=== PATIENT | female | born 1990 | race African-American/Black ===

== ENCOUNTER 2019-03-25 10:20 | Outpatient (CLI) | payer OTHER, SELFPAY ==
--- NOTE | ~2019-03-25 | XR_ITS ---
EXAMINATION: XR chest 2V EXAM DATE: 03/25/2019 10:41 INDICATION: Cough. TECHNIQUE: Frontal and lateral projections of the chest obtained and reviewed. Comparison is made to prior examination from 02/12/2019. FINDINGS: There is moderate right-sided pleural effusion with adjacent airspace disease at least par tly atelectasis. Infection, could be atypical or chronic process, also possible. Effusion and airspac e disease appears mildly improved compared to 02/[address] scan in January there was also sig nificant mediastinal lymphadenopathy. Patient did have a thoracentesis, correlate with those results. Cardiomediastinal silhouette is normal. Left lung is clear. No left pleural effusion. There are no os seous abnormalities identified. IMPRESSION: Persistent moderate-sized right pleural effusion with adjacent airspace disease. Correlat e with prior CT, thoracentesis results. Reviewed, dictated and finalized at location A. PROGRAM COORDINATOR IMPRESSION: Persistent moderate-sized right pleural effusion with adjacent airs pace disease. Correlate with prior CT, thoracentesis results.
== END 2019-03-25 10:21 | disposition home or self-care (01) ==
LOC: ANHIMG 10:24
PROVIDERS: PCP Family Medicine; Visit Provider Physician Assistant
DX: R05 Cough (principal); R06.02 Shortness of breath; J90 Pleural effusion, not elsewhere classified
CPT/HCPCS: 71046

== ENCOUNTER 2019-03-26 11:07 | Outpatient (CLI) | payer OTHER, SELFPAY ==
--- NOTE | ~2019-03-26 | US_ITS ---
US thoracentesis DATE: 03/26/2019 13:54 INDICATION: Right pleural effusion TECHNIQUE: The purpose the procedure, technique and potential competitions were discussed with the araceli polanco. The patient verbalized understanding and gave consent. Timeout procedure confirmed proper patient and procedure. With ultrasound guidance, an appropriate site for percutaneous access for thoracentesis was identifie d. The skin was prepared with sterile Betadine solution. Sterile drape was applied. Local anesthetic was administered to the skin and underlying subcutaneous tissues. The third thoracentesis attempt was successful, yielding clear yellowish pleural fluid. 700 cc was drained into vacuum bottles. Patient was very cooperative and tolerated procedure without complaint or apparent complication. IMPRESSION: Successful ultrasound guided percutaneous thoracentesis yielding 700 cc of clear yellowis h pleural fluid Reviewed, dictated and finalized at [facility]. Reviewed, dictated and finalized at location A. ER SETUP OPERATOR IMPRESSION: Successful ultrasound guided percutaneous thoracentesis yielding 70 0 cc of clear yellowish pleural fluid
--- NOTE | ~2019-03-26 | XR_ITS ---
XR chest 1V DATE: 03/26/2019 12:28 INDICATION: Right thoracentesis unsuccessful attempts TECHNIQUE: Upright PA chest COMPARISON: 03/25/2021 view chest FINDINGS: Large right pleural effusion is noted, stable since 03/25/2019. There is no evidence of pneum othorax. IMPRESSION: No evidence of pneumothorax following 2 unsuccessful thoracentesis attempts Reviewed, dictated and finalized at location A. HEALTH CARE COORDINATOR
--- NOTE | ~2019-03-26 | XR_ITS ---
EXAMINATION: XR chest 1V DATE: 03/26/2019 13:10 INDICATION: Right pleural effusion postthoracentesis TECHNIQUE: PA upright view of the chest was obtained. COMPARISON: Chest radiograph dated 03/26/2019 at 12:22 PM FINDINGS: Interval decrease in size of a now small right pleural effusion. Passes at the right lower lung zone most likely associated compressive atelectasis although pneumonia not excludable. Left lung remains c lear with no airspace opacities or pleural effusion. No pneumothorax. The cardiomediastinal silhouett e is normal. Visualized bones and soft tissues are unremarkable. IMPRESSION: 1. Interval decrease in size of a now small right pleural effusion postthoracentesis. 2. Opacities in the right lower lung zone which could represent associated compressive atelectasis or pneumonia. Reviewed, dictated and finalized at location A. [facility] OPERATOR IMPRESSION: 1. Interval decrease in size of a now small right pleural effusion postthoracen tesis. 2. Opacities in the right lower lung zone which could represent associated comp ressive atelectasis or pneumonia.
--- NOTE | 2019-03-26 13:30 | PC.NURSE ---
Received patient from radiology department into room 261 at 1330 via wheelchair for observation following thoracentesis procedure today 03/26/19. Patient stable at this time. Denies any complaints of SOB. Patient does rate pain 2/10 in right lung and describes it as a sharp pain when inhaling. Patients total assessment is WNL except for diminished right lung sounds on inspiration and expiration. 2 bandaids are noted on right back from procedure site. Vital signs at this time 97.1 F, 18 respirations, 97% O2 on room air, 74 HR, 106/66 BP. Will keep patient NPO for 2 hours following procedure and continue to monitor.
--- NOTE | 2019-03-26 13:45 | PC.NURSE ---
Patient denies any SOB or pain at this time. Patient states she feels good . Vitals are 97.2 F, 16 respirations, 97% O2 on room air, 93/63 BP. Will continue NPO status. Will continue to monitor.
[2019-03-26 13:52] VITALS: BP 113/77; PULSE 75; RESP 18; O2SAT 93
[2019-03-26 13:53] VITALS: BP 106/80; PULSE 74; RESP 18; O2SAT 95
--- NOTE | 2019-03-26 14:15 | PC.NURSE ---
Patient denies any SOB or pain at this time. Vitals are 97.0 F, 16 respirations, 98% O2 on room air, 68 HR, 108/56 BP. Will continue NPO status. Will continue to monitor.
--- NOTE | 2019-03-26 15:27 | PC.NURSE ---
Patient denies any SOB or pain at this time. Respiratory status is WNL. Vitals are 97.2 F, 17 respirations, 98% O2 on room air, 81 HR, 124/73 BP. Per orders, patient may DC to home after 2 hours. DC'd patients IV from left anticubital. Educated patient to return to emergency department for any c/o chest pain, SOB, difficulty breathing. Provided patient with number to call for any questions or concerns. Explained to patient she may now resume home diet. Patient agrees to orders and denies any questions at this time. Will DC patient to private vehicle via wheelchair.
[2019-03-30 21:46] LABS: Glucose Pleural Fluid 10 mg/dL; LDH Pleural Fluid 1195 U/L; Total Protein Pleural Fluid 5.6 g/dL
== END 2019-03-26 11:08 | disposition home or self-care (01) ==
LOC: ANHIMG 11:16
PROVIDERS: PCP Family Medicine; Visit Provider Physician Assistant
DX: J90 Pleural effusion, not elsewhere classified (principal); R91.8 Other nonspecific abnormal finding of lung field
CPT/HCPCS: 32555; 71045; 82945; 83615; 84157; 87070; 87075; 87205

== ENCOUNTER 2019-04-08 09:59 | Outpatient (CLI) | payer OTHER, SELFPAY ==
--- NOTE | ~2019-04-08 | XR_ITS ---
EXAMINATION: XR chest 2V DATE: 04/08/2019 10:14 INDICATION: Shortness of breath and cough and dizziness. TECHNIQUE: Frontal and lateral views of the chest were obtained. COMPARISON: Chest single view 03/26/2019, chest CT 02/09/2019 FINDINGS: There is a loculated moderate-sized right pleural effusion. There are airspace opacities at right lung base. No pneumothorax. The heart size is normal. IMPRESSION: 1. Worsened loculated moderate-sized right pleural effusion. 2. Airspace opacities at left right lung base, consistent with atelectasis versus pneumonia. Reviewed, dictated and finalized at location A. GER CLIENT SUPPORT IMPRESSION: 1. Worsened loculated moderate-sized right pleural effusion. 2. Airspace opacities at left right lung base, consistent with atelectasis vers us pneumonia.
[2019-04-08 11:25] LABS: Basophils Percent Auto 0.3 % (0.2-1.2); Eosinophils Absolute Auto 0.2 K/mm3 (0-0.3); Hematocrit 38.3 % (37.0-47.0); Hemoglobin 12.6 g/dL (12.0-15.0); Immature Granulocyte Absolute 0.02 K/mm3 (0.00-0.031); Immature Granulocyte Percent A 0.3 % (0-0.5); Lymphocytes Absolute Auto 1.15 K/mm3 (0.9-3.2); Lymphocytes Percent Auto 17.5 % (18.3-44.2); Mean Corpuscular HGB Conc 32.9 g/dl (32-36); Mean Corpuscular Hemoglobin 25.4 pg (26-34); Mean Corpuscular Volume 77.1 fl (80-100); Mean Platelet Volume 9.4 fl (7.4-10.4); Monocytes Absolute Auto 0.9 K/mm3 (0.1-0.6); Monocytes Percent Auto 12.9 % (2.6-8.5); Neutrophils Absolute Auto 4.3 K/mm3 (1.3-6.7); Platelet Count Result 348 k/mm3 (150-375); Red Blood Count 4.97 M/mm3 (4.2-5.4); Red Cell Distribution Width 14.5 % (11.5-14.5); White Blood Count 6.6 K/mm3 (4.5-10.0)
== END 2019-04-08 10:00 | disposition home or self-care (01) ==
PROVIDERS: PCP Family Medicine; Visit Provider Physician Assistant
DX: J90 Pleural effusion, not elsewhere classified (principal); R06.02 Shortness of breath; R93.89 Abnormal findings on diagnostic imaging of other specified body structures
CPT/HCPCS: 36415; 71046; 85025

== ENCOUNTER 2019-04-11 12:21 | Outpatient (CLI) | payer OTHER, SELFPAY ==
[2019-04-08 16:20] VITALS: BMI 52.3
[2019-04-11] VITALS (8 sets, daily range): BP systolic 105–132; BP diastolic 66–90; PULSE 80–91; RESP 14–24; O2SAT 95–98
--- NOTE | ~2019-04-11 | XR_ITS ---
EXAMINATION: XR chest 1V EXAM DATE: 04/11/2019 14:19 INDICATION: Right pleural effusion. TECHNIQUE: Frontal and lateral projections of the chest obtained and reviewed. Comparison is made to prior examination from 04/08/2019. FINDINGS: Moderate-sized right pleural effusion which is likely loculated given that is extending up the lateral aspect of the hemithorax. There is adjacent atelectasis. Sizable pleural effusion may sanchez ve increased slightly compared to previous examination. Left lung is clear. No pneumothorax. Cardiome diastinal silhouette is normal. There are no osseous abnormalities identified. IMPRESSION: Moderate-sized loculated right pleural effusion may have increased slightly in size, red cent airspace disease unchanged. Reviewed, dictated and finalized at location B. IRONER IMPRESSION: Moderate-sized loculated right pleural effusion may have increased slightly in size, adjacent airspace disease unchanged.
--- NOTE | ~2019-04-11 | US_ITS ---
EXAMINATION: US thoracentesis DATE: 04/11/2019 14:22 INDICATION: pleural effusion TECHNIQUE: The procedure and its risks, benefits, and alternatives were discussed with the patient. P otential risks discussed included bleeding, infection, and pneumothorax. The patient understood the r isks and agreed to proceed. The skin was prepped and draped in sterile fashion. 1% lidocaine was used for local anesthesia. Under ultrasound guidance, a 5 Fr catheter with trochar was advanced into the right pleural effusion. Fluid was aspirated in 3 locations. The catheter was removed, and a dressing was applied. There were no immediate complications. FINDINGS: Ultrasound images demonstrate a right pleural effusion and the catheter within the fluid. IMPRESSION: 1. Successful ultrasound-guided thoracentesis yielding 2 mL of clear, yellow fluid. Reviewed, dictated and finalized at location A. ERSHIP ADMINISTRATOR IMPRESSION: 1. Successful ultrasound-guided thoracentesis yielding 2 mL of clear, yellow f luid.
[2019-04-11 13:06] LABS: Mean Platelet Volume 9.3 fl (7.4-10.4); Platelet Count Result 358 k/mm3 (150-375)
[2019-04-11 13:14] LABS: Amylase 61 U/L (30-110); Glucose 87 mg/dL (65-105); Lactate Dehydrogenase 343 U/L (313-618)
[2019-04-11 13:17] LABS: INR 1.1; Prothrombin Time 14.3 Seconds (11.1-14.7)
[2019-04-11 15:31] LABS: Appearance Pleural Fluid Cloudy (Clear); Color Pleural Fluid Yellow (Colorless); Pleural fluid source Pleural fluid
[2019-04-11 15:32] LABS: Lymphocytes Pleural Fluid 89 %; Macrophages Pleural Fluid 1 %; Monocytes Pleural Fluid 8 %; Neutrophils Pleural Fluid 2 % (0-25); Nucleated Cell Pleural Fluid 4277 /uL (0-1000); RBC Pleural Fluid 5048 /uL (0-0)
== END 2019-04-11 16:15 | disposition home or self-care (01) ==
PROVIDERS: Radiology Diagnostic Radiology; PCP Family Medicine; Visit Provider Nurse Practitioner Family
DX: J90 Pleural effusion, not elsewhere classified (principal)
CPT/HCPCS: 32555; 36415; 71045; 82150; 82947; 83615; 84155; 85049; 85610; 87070; 87075; 87205; 88104; 88108; 88305; 89051

== ENCOUNTER 2019-06-06 13:59 | Outpatient (CLI) | payer OTHER, MEDICAID, SELFPAY ==
--- NOTE | ~2019-06-06 | XR_ITS ---
EXAMINATION: XR chest 2V EXAM DATE: 06/06/2019 14:13 INDICATION: Pleural effusion. TECHNIQUE: Frontal and lateral projections of the chest obtained and reviewed. Comparison is made to prior examination from 04/11/2019. FINDINGS: There is small to moderate right pleural effusion with interval decrease in size. There is been interval normalization of the heart size. There is right-sided subsegmental atelectasis. Left l jethro is clear. No pneumothorax. There are no osseous abnormalities identified. IMPRESSION: Interval improvement in the now small to moderate right pleural effusion, with adjacent s ubsegmental atelectasis. Recommend additional one-month follow-up and if this persists, could conside r reevaluation with CT scan. Reviewed, dictated and finalized at location G. IMPRESSION: Interval improvement in the now small to moderate right pleural eff usion, with adjacent subsegmental atelectasis. Recommend additional one-month f ollow-up and if this persists, could consider reevaluation with CT scan.
== END 2019-06-06 14:00 | disposition home or self-care (01) ==
LOC: ANHIMG 14:04
PROVIDERS: PCP Family Medicine; Visit Provider Nurse Practitioner Family
DX: J90 Pleural effusion, not elsewhere classified (principal); J98.11 Atelectasis
CPT/HCPCS: 71046

== ENCOUNTER 2019-07-07 10:46 | Outpatient (CLI) | payer MEDICAID, SELFPAY ==
--- NOTE | ~2019-07-07 | XR_ITS ---
XR chest 2V DATE: 07/07/2019 11:08 INDICATION: Pleural effusion TECHNIQUE: PA and lateral views COMPARISON: 06/06/2019 PA and lateral chest FINDINGS: Stable right mild pleural effusion and right sided infiltrate and/or atelectasis; no signif icant change since 06/06/2019. The left lung is clear. No left pleural effusion. Heart size appears normal. IMPRESSION: No significant change of right pleural effusion or right-sided infiltrate/atelectasis sin ce 06/06/2019 Reviewed, dictated and finalized at location A. IMPRESSION: No significant change of right pleural effusion or right-sided infi ltrate/atelectasis since 06/06/2019
== END 2019-07-07 10:47 | disposition home or self-care (01) ==
PROVIDERS: PCP Family Medicine; Visit Provider Nurse Practitioner Family
DX: J90 Pleural effusion, not elsewhere classified (principal)
CPT/HCPCS: 71046

== ENCOUNTER 2019-08-16 12:41 | Outpatient (CLI) | payer MEDICAID, SELFPAY ==
--- NOTE | ~2019-08-16 | CT_ITS ---
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 The dose -length product (DLP) was 874.71 mGy-cm. Automated exposure control and iterative reconstruction tech [employer] were employed. COMPARISON: 02/09/2019 FINDINGS: There is a right loculated pleural effusion which has decreased in size since the prior exa mination. There is an approximately 1.7 x 0.8 cm nodule in the right upper lobe adjacent to a defect in the posterior lateral aspect of the right fifth rib. The rib defect is new compared to the prior e xamination. There is no pneumothorax. The heart size is normal. An unchanged 3.3 x 3.3 cm right lower paratracheal lymph node is identified. IMPRESSION: 1. Loculated right pleural effusion with interval decrease in size. 2. New surgical defect in the right posterolateral fifth rib. 3. Unchanged mediastinal lymphadenopathy of unclear significance, possibly reactive. Reviewed, dictated and finalized at location A. IMPRESSION: 1. Loculated right pleural effusion with interval decrease in size. 2. New surgical defect in the right posterolateral fifth rib. 3. Unchanged mediastinal lymphadenopathy of unclear significance, possibly reac tive.
== END 2019-08-16 12:42 | disposition home or self-care (01) ==
PROVIDERS: PCP Family Medicine; Visit Provider Nurse Practitioner Family
DX: J86.9 Pyothorax without fistula (principal); J90 Pleural effusion, not elsewhere classified
CPT/HCPCS: 71250

== ENCOUNTER 2020-03-27 15:55 | Outpatient (CLI) | payer OTHER, SELFPAY | END 2020-03-27 15:56 | disposition home or self-care (01) | LOC: ANHLAB 15:57 | PROVIDERS: PCP Family Medicine; Visit Provider Nurse Practitioner Family | DX: Z01.84 Encounter for antibody response examination (principal) | CPT/HCPCS: 36415; 86787 ==

== ENCOUNTER 2021-01-17 13:44 | Outpatient (CLI) | payer OTHER, SELFPAY ==
--- NOTE | ~2021-01-17 | XR_ITS ---
EXAMINATION: XR foot LT min 3V DATE: 01/17/2021 14:05 INDICATION: Left foot pain. TECHNIQUE: 4 views of left foot were obtained. COMPARISON: None. FINDINGS: Bone alignment is normal. No fracture. There is mild osteoarthritis of first and third meta tarsophalangeal joints characterized by tiny marginal osteophytes. There are enthesophytes at the pos terior and plantar aspects of calcaneal tuberosity. IMPRESSION: 1. Mild polyarticular osteoarthritis. Reviewed, dictated and finalized at location A. ET TAKER FERRYBOAT
== END 2021-01-17 13:45 | disposition home or self-care (01) ==
LOC: ANHIMG 13:46
PROVIDERS: PCP Family Medicine; Visit Provider Physician Assistant
DX: M19.072 Primary osteoarthritis, left ankle and foot (principal)
CPT/HCPCS: 73630

== ENCOUNTER 2021-07-03 13:26 | Outpatient (CLI) | payer OTHER, SELFPAY ==
[2021-07-03 14:01] LABS: Basophils Percent Auto 0.6 % (0.2-1.2); Eosinophils Absolute Auto 0.2 K/mm3 (0-0.3); Eosinophils Percent Auto 2.1 % (0-4.4); Hematocrit 39.8 % (37.0-47.0); Hemoglobin 13.4 g/dL (12.0-15.0); Immature Granulocyte Absolute 0.03 K/mm3 (0.00-0.031); Immature Granulocyte Percent A 0.4 % (0-0.5); Lymphocytes Absolute Auto 1.57 K/mm3 (0.9-3.2); Lymphocytes Percent Auto 21.9 % (18.3-44.2); Mean Corpuscular HGB Conc 33.7 g/dl (32-36); Mean Corpuscular Hemoglobin 27.3 pg (26-34); Mean Corpuscular Volume 81.1 fl (80-100); Mean Platelet Volume 9.8 fl (7.4-10.4); Monocytes Absolute Auto 0.6 K/mm3 (0.1-0.6); Monocytes Percent Auto 8.2 % (2.6-8.5); Neutrophils Absolute Auto 4.8 K/mm3 (1.3-6.7); Neutrophils Percent Auto 66.8 % (45.5-73.1); Platelet Count Result 288 k/mm3 (150-375); Red Blood Count 4.91 M/mm3 (4.2-5.4); Red Cell Distribution Width 13.9 % (11.5-14.5); White Blood Count 7.2 K/mm3 (4.5-10.0)
[2021-07-03 14:13] LABS: Alanine Aminotransferase 15 U/L (6-35); Albumin Level 3.9 g/dL (3.5-5.1); Alkaline Phosphatase 88 U/L (38-126); Anion Gap 5 mmol/L (8-16); Aspartate Amino Transferase 15 U/L (14-36); Bilirubin,Total 0.3 mg/dL (0.2-1.3); Blood Urea Nitrogen 12 mg/dL (7-17); Calcium 8.7 mg/dL (8.4-10.2); Carbon Dioxide 28 mmol/L (22-30); Chloride 103 mmol/L (98-107); Estimated Glomerular Filt Rate > 60; Glucose 114 mg/dL (65-110); Potassium 4.1 mmol/L (3.4-5.0); Sodium 136 mmol/L (137-145)
[2021-07-03 14:14] LABS: Appearance Urine Clear (Clear); Bilirubin Urine Negative (Negative); Blood Urine Negative (Negative); Color Urine Yellow (Yellow); Glucose Urine UA Negative (Negative); Ketones Urine Negative (Negative); Leukocyte Esterase Ur Negative LEU/UL (NEGATIVE); Nitrate Urine Negative (Negative); Protein Urine Negative (Negative); Urobilinogen Urine 0.2 mg/dL (<2.0)
[2021-07-03 14:34] LABS: Add Urine Microscopic? NO
== END 2021-07-03 13:27 | disposition home or self-care (01) ==
LOC: ANHLAB 13:28
PROVIDERS: PCP Family Medicine; Visit Provider Physician Assistant
DX: Z00.00 Encounter for general adult medical examination without abnormal findings (principal); F41.9 Anxiety disorder, unspecified; F32.9 Major depressive disorder, single episode, unspecified
CPT/HCPCS: 36415; 80053; 81003; 84443; 85025

== ENCOUNTER 2022-07-17 12:28 | Outpatient (CLI) | payer BC, SELFPAY ==
[2022-07-17 12:49] LABS: Hematocrit 37.7 % (37.0-47.0); Hemoglobin 12.9 g/dL (12.0-15.0); Mean Corpuscular HGB Conc 34.2 g/dl (32-36); Mean Corpuscular Hemoglobin 27.4 pg (26-34); Mean Corpuscular Volume 80.2 fl (80-100); Platelet Count Result 286 k/mm3 (150-375); Red Cell Distribution Width 13.6 % (11.5-14.5); White Blood Count 6.9 K/mm3 (4.5-10.0)
[2022-07-17 12:50] LABS: Appearance Urine Clear (Clear); Bilirubin Urine Negative (Negative); Blood Urine Negative (Negative); Color Urine Yellow (Yellow); Glucose Urine UA Negative (Negative); Ketones Urine Negative (Negative); Leukocyte Esterase Ur Negative LEU/UL (NEGATIVE); Nitrate Urine Negative (Negative); Protein Urine Negative (Negative); Specific Grav Ur 1.014 (1.001-1.035); Urobilinogen Urine 0.2 mg/dL (<2.0); pH Urine 6.5 (5.0-9.0)
[2022-07-17 12:59] LABS: Hemoglobin A1C 5.4 % (<5.7)
[2022-07-17 13:02] LABS: Alanine Aminotransferase 21 U/L (6-35); Albumin Level 3.9 g/dL (3.5-5.1); Alkaline Phosphatase 76 U/L (38-126); Anion Gap 5 mmol/L (8-16); Aspartate Amino Transferase 15 U/L (14-36); Bilirubin,Total 0.4 mg/dL (0.2-1.3); Blood Urea Nitrogen 13 mg/dL (7-17); Calcium 8.8 mg/dL (8.4-10.2); Carbon Dioxide 29 mmol/L (22-30); Chloride 105 mmol/L (98-107); Estimated Glomerular Filt Rate > 60; Glucose 133 mg/dL (65-110); Potassium 3.9 mmol/L (3.4-5.0); Sodium 139 mmol/L (137-145)
[2022-07-17 13:22] LABS: Add Urine Microscopic? NO
== END 2022-07-17 12:29 | disposition home or self-care (01) ==
LOC: ANHLAB 12:31
PROVIDERS: PCP Family Medicine; Visit Provider Physician Assistant
DX: F32.9 Major depressive disorder, single episode, unspecified (principal); F41.9 Anxiety disorder, unspecified; R73.01 Impaired fasting glucose
CPT/HCPCS: 36415; 80053; 81003; 83036; 84443; 85027

== ENCOUNTER 2022-09-27 10:43 | Outpatient (CLI) | payer BC, SELFPAY ==
[2022-09-27 11:11] LABS: Cholesterol 168 mg/dL (0-200); HDL Direct 42 mg/dL; Triglycerides 68 mg/dL (<150)
[2022-09-27 11:22] LABS: LDL Cholesterol Direct 100 mg/dL
== END 2022-09-27 10:44 | disposition home or self-care (01) ==
LOC: ANHLAB 10:44
PROVIDERS: PCP Family Medicine; Visit Provider Physician Assistant
DX: Z00.00 Encounter for general adult medical examination without abnormal findings (principal)
CPT/HCPCS: 36415; 80061

== ENCOUNTER 2023-09-09 13:26 | Outpatient (CLI) | payer BC, SELFPAY ==
[2023-09-09 13:54] LABS: Hematocrit 39.7 % (37.0-47.0); Hemoglobin 13.2 g/dL (12.0-15.0); Mean Corpuscular HGB Conc 33.2 g/dl (32-36); Mean Corpuscular Hemoglobin 27.4 pg (26-34); Mean Corpuscular Volume 82.5 fl (80-100); Platelet Count Result 285 k/mm3 (150-375); Red Blood Count 4.81 M/mm3 (4.2-5.4); Red Cell Distribution Width 13.7 % (11.5-14.5); White Blood Count 6.8 K/mm3 (4.5-10.0)
[2023-09-09 14:09] LABS: Appearance Urine Clear (Clear); Bilirubin Urine Negative (Negative); Blood Urine Negative (Negative); Color Urine Yellow (Yellow); Glucose Urine UA Negative (Negative); Ketones Urine Negative (Negative); Leukocyte Esterase Ur Negative LEU/UL (Negative); Nitrate Urine Negative (Negative); Protein Urine Negative (Negative); Specific Grav Ur 1.013 (1.001-1.035); Urobilinogen Urine 0.2 mg/dL (<2.0)
[2023-09-09 14:13] LABS: Alanine Aminotransferase 16 U/L (6-35); Alkaline Phosphatase 90 U/L (38-126); Anion Gap 8 mmol/L (4-12); Aspartate Amino Transferase 13 U/L (14-36); Bilirubin,Total 0.5 mg/dL (0.2-1.3); Blood Urea Nitrogen 10 mg/dL (7-17); Carbon Dioxide 31 mmol/L (22-30); Chloride 100 mmol/L (98-107); Cholesterol 156 mg/dL (0-200); Estimated Glomerular Filt Rate > 60; Glucose 91 mg/dL (65-110); HDL Direct 35 mg/dL; Potassium 4.1 mmol/L (3.4-5.0); Sodium 139 mmol/L (137-145); Triglycerides 80 mg/dL (<150)
[2023-09-09 14:21] LABS: Hemoglobin A1C 5.9 % (<5.7)
[2023-09-09 14:22] LABS: Add Urine Microscopic? NO
[2023-09-09 14:24] LABS: LDL Cholesterol Direct 91 mg/dL
== END 2023-09-09 13:27 | disposition home or self-care (01) ==
LOC: ANHLAB 13:27
PROVIDERS: PCP Family Medicine; Visit Provider Physician Assistant
DX: Z00.00 Encounter for general adult medical examination without abnormal findings (principal); F32.9 Major depressive disorder, single episode, unspecified; F41.9 Anxiety disorder, unspecified; R73.01 Impaired fasting glucose
CPT/HCPCS: 36415; 80053; 80061; 81003; 83036; 84443; 85027